=== PATIENT | male | born 1960 | race Caucasian/White ===

== ENCOUNTER 2017-06-28 07:39 | Emergency (ER) | payer BC ==
--- NOTE | 2017-06-28 07:47 | EDM.PDOC ---
ED HPI GENERAL MEDICAL PROBLEM - General Chief Complaint: Gastrointestinal Problem Stated Complaint: BLEEDING Time Seen by Provider: 06/28/17 07:40 - History of Present Illness INITIAL COMMENTS - FREE TEXT/NARRATIVE: HISTORY AND PHYSICAL: History of present illness: Patient's 56-year-old white male presents with a concern of bright red blood per rectum 2-3 days he states this is primarily when he wipes he does have hemorrhoids he denies abdominal pain denies history of known diverticular disease denies any known bleeding diathesis. There's been no chest pain shortness of breath nausea vomiting or other concern patient denies melena Review of systems: As per history of present illness and below otherwise all systems reviewed and negative. Past medical history: As per history of present illness and as reviewed below otherwise noncontributory. Surgical history: As per history of present illness and as reviewed below otherwise noncontributory. Social history: No reported history of drug or alcohol abuse. Family history: As per history of present illness and as reviewed below otherwise noncontributory. Physical exam: HEENT: Atraumatic, normocephalic, pupils reactive, negative for conjunctival pallor or scleral icterus, mucous membranes moist, throat clear, neck supple, nontender, trachea midline. Lungs: Clear to auscultation, breath sounds equal bilaterally, chest nontender. Heart: S1S2, regular, negative for clicks, rubs, or JVD. Abdomen: Soft, nondistended, nontender. Negative for masses or hepatosplenomegaly. Negative for costovertebral tenderness. Pelvis: Stable nontender. Genitourinary: Deferred. Rectal: External hemorrhoid noted without evidence of active bleeding Extremities: Atraumatic, negative for cords or calf pain. Neurovascular unremarkable. Neuro: Awake, alert, oriented. Cranial nerves II through XII unremarkable. Cerebellum unremarkable. Motor and sensory unremarkable throughout. Exam nonfocal. Diagnostics: CBC CMP PT/INR EKG CT abdomen and pelvis Therapeutics: To be determined Impression: #1 history of bright red blood per rectum Definitive disposition and diagnosis as appropriate pending reevaluation and review of above. - Related Data Allergies Allergy/AdvReac Type Severity Reaction Status Date / Time Penicillins Allergy Cannot Verified 06/28/17 07:43 Remember Home Meds: Home Meds Indomethacin [Indocin] 1 tab PO BID PRN 02/29/16 [History] Metoprolol Succinate [Toprol XL] 100 mg PO DAILY 10/03/15 [History] Lisinopril 10 mg PO DAILY 06/28/17 [History] Past Medical History HEENT History: Reports: None Cardiovascular History: Reports: Hypertension Respiratory History: Reports: None Gastrointestinal History: Reports: None Genitourinary History: Reports: None Musculoskeletal History: Reports: Gout Other Musculoskeletal History: hx of fx right ankle Neurological History: Reports: None Psychiatric History: Reports: None Endocrine/Metabolic History: Reports: Obesity/BMI 30+ Hematologic History: Reports: None Immunologic History: Reports: None Oncologic (Cancer) History: Reports: None Dermatologic History: Reports: None - Past Surgical History GI Surgical History: Reports: Other (See Below) Musculoskeletal Surgical History: Reports: Hip Replacement, ORIF Social & Family History - Family History Oncologic: Reports: Skin - Tobacco Use Smoking Status *Q: Never Smoker - Recreational Drug Use Recreational Drug Use: No Drug Use in Last 12 Months: No ED ROS GENERAL - Review of Systems Review Of Systems: ROS reveals no pertinent complaints other than HPI. ED EXAM, GENERAL - Physical Exam Exam: See Below (See dictation) Course - Vital Signs Last Recorded V/S: Last Vital Signs Temp 36.6 C 06/28/17 07:39 Pulse 55 L 06/28/17 08:37 Resp 18 06/28/17 08:37 BP 144/89 H 06/28/17 08:37 Pulse Ox 95 06/28/17 08:37 - Orders/Labs/Meds Orders: Active Orders 24 hr Category Date Time Status EKG 12 Lead [EKG Documentation Completion] [RC] STAT Care 06/28/17 08:06 Active Abdomen Pelvis w Cont [CT] Stat Exams 06/28/17 07:45 Stop Req Abdomen Pelvis wo Cont [CT] Stat Exams 06/28/17 07:47 Ordered Labs: Laboratory Tests 06/28/17 06/28/17 06/28/17 Range/Units 07:45 07:55 07:55 WBC 6.51 (4.0-11.0) K/uL RBC 4.91 (4.50-5.90) M/uL Hgb 14.4 (13.0-17.0) g/dL Hct 41.9 (38.0-50.0) % MCV 85.3 (80.0-98.0) fL MCH 29.3 (27.0-32.0) pg MCHC 34.4 (31.0-37.0) g/dL RDW Std Deviation 45.7 (28.0-62.0) fl RDW Coeff of Kathy 15 (11.0-15.0) % Plt Count 214 (150-400) K/uL MPV 9.00 (7.40-12.00) fL Neut % (Auto) 68.8 (48.0-80.0) % Lymph % (Auto) 21.8 (16.0-40.0) % Gregory % (Auto) 6.8 (0.0-15.0) % Eos % (Auto) 2.3 (0.0-7.0) % Baso % (Auto) 0.3 (0.0-1.5) % Neut # (Auto) 4.5 (1.4-5.7) K/uL Lymph # (Auto) 1.4 (0.6-2.4) K/uL Gregory # (Auto) 0.4 (0.0-0.8) K/uL Eos # (Auto) 0.2 (0.0-0.7) K/uL Baso # (Auto) 0.0 (0.0-0.1) K/uL Nucleated RBC % 0.0 /100WBC Nucleated RBCs # 0 K/uL INR 1.01 (0.86-1.11) Sodium 139 (136-146) mmol/L Potassium 3.7 (3.5-5.1) mmol/L Chloride 106 (98-110) mmol/L Carbon Dioxide 25 (21-31) mmol/L BUN 16 (6.0-23.0) mg/dL Creatinine 0.9 (0.6-1.5) mg/dL Est Cr Clr Drug Dosing 89.47 mL/min Estimated GFR (MDRD) > 60.0 ml/min Glucose 113 H (60-110) mg/dL Calcium 8.7 L (8.8-10.8) mg/dL Total Bilirubin 0.6 (0.1-1.5) mg/dL AST 14 (5-40) IU/L ALT 17 (8-54) IU/L Alkaline Phosphatase 82 (40-150) Total Protein 7.0 (6.0-8.0) g/dL Albumin 3.9 (3.5-5.0) g/dL Globulin 3.1 (2.0-3.5) g/dL Albumin/Globulin Ratio 1.3 (1.3-2.8) Departure - Departure Time of Disposition: 08:41 Disposition: Home, Self-Care 01 Condition: Good Clinical Impression: History of gastrointestinal bleeding - Discharge Information Forms: ED Department Discharge Additional Instructions: The following information is given to patients seen in the emergency department who are being discharged to home. This information is to outline your options for follow-up care. We provide all patients seen in our emergency department with a follow-up referral. The need for follow-up, as well as the timing and circumstances, are variable depending upon the specifics of your emergency department visit. If you don't have a primary care physician on staff, we will provide you with a referral. We always advise you to contact your personal physician following an emergency department visit to inform them of the circumstance of the visit and for follow-up with them and/or the need for any referrals to a consulting specialist. The emergency department will also refer you to a specialist when appropriate. This referral assures that you have the opportunity for followup care with a specialist. All of these measure are taken in an effort to provide you with optimal care, which includes your followup. Under all circumstances we always encourage you to contact your private physician who remains a resource for coordinating your care. When calling for followup care, please make the office aware that this follow-up is from your recent emergency room visit. If for any reason you are refused follow-up, please contact the [facility] emergency department at and asked to speak to the emergency department charge nurse. [facility] - General Surgery Professional Building [address] [place] [address], [address] [place] [address] Follow-up primary medical doctor and make appointment with general surgery above as discussed return as needed as discussed - My Orders Last 24 Hours: My Active Orders 06/28/17 07:45 Abdomen Pelvis w Cont [CT] Stat 06/28/17 07:47 Abdomen Pelvis wo Cont [CT] Stat 06/28/17 08:06 EKG 12 Lead [EKG Documentation Completion] [RC] STAT - Assessment/Plan Last 24 Hours: My Active Orders 06/28/17 07:45 Abdomen Pelvis w Cont [CT] Stat 06/28/17 07:47 Abdomen Pelvis wo Cont [CT] Stat 06/28/17 08:06 EKG 12 Lead [EKG Documentation Completion] [RC] STAT
[2017-06-28 08:29] LABS: CHLORIDE,CL 106 mmol/L (98-110); SODIUM,NA 139 mmol/L (136-146)
[2017-06-28 08:38] VITALS: BP 144/89
--- NOTE | 2017-06-28 10:06 | CT ---
EXAM DATE: 06/28/17 PATIENT'S AGE: 56 Patient: MAYCOL MORAN Facility: [place], [place] Site . Site : 1960 Study: CT Abdomen/Pelvis [id number]/[id number] 8:15:11 AM Ordering Physician: Thuan Campos Final Report: INDICATION: Rectal bleeding. Technique: CT abdomen and pelvis performed without oral IV contrast. Findings: Bilateral total hip arthroplasties. Minimal fibrotic change in the lung bases. Tiny calcifications in the posterior inferior gallbladder likely related to tiny stones with less likely consideration being a early gallbladder wall calcification. Moderate sized lipoma left lower lateral chest wall. Benign diffuse thickening of the left adrenal gland likely related to hyperplasia. Nodular thickening right adrenal gland likely related to an adenoma. No CT abnormality identified to explain rectal bleeding. All changes of anterior pelvic wall hernia repair with mesh material in the periumbilical region. 2 small recurrent fat containing hernias in the lower anterior abdominal wall just above the mesh material each measuring approximately 2-3 cm in diameter each on image 100 arising from small 1 cm defects in the lower anterior abdominal wall fascia and musculature. Remainder negative. Impression: 1. No CT abnormality identified to explain rectal bleeding. 2. Postsurgical changes of the periumbilical anterior pelvic wall hernia repair with mesh material with 2 small fat containing recurrent hernias in the lower anterior abdominal wall just above the level of the mesh. 3. Nodular thickening of the adrenal glands right greater than left consistent with hyperplasia and/or adenomas. 4. Small calcifications in the gallbladder would favor cholelithiasis although early porcelain gallbladder is not excluded. Other findings as above. Please note that all CT scans at this facility use dose modulation, iterative reconstruction, and/or weight-based dosing when appropriate to reduce radiation dose to as low as reasonably achievable. Dictated by Juan Jose Bryan MD @ Jun 28 2017 8:36AM (Electronic Signature) Report Signed by Proxy. [email or web address]
== END 2017-06-28 08:47 | disposition home or self-care (01) ==
LOC: MW.ED 07:39
DX: K64.4 Residual hemorrhoidal skin tags (principal); I10 Essential (primary) hypertension; Z87.19 Personal history of other diseases of the digestive system; Z88.0 Allergy status to penicillin; Z79.899 Other long term (current) drug therapy
CPT/HCPCS: 36415; 74176; 74176-26; 80053; 85025; 85610; 93005; 99283; 99284-25

== ENCOUNTER 2021-08-11 11:42 | Emergency (ER) | payer BC, OTHER ==
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
[2021-08-11 13:11] VITALS: BP 132/72; PULSE 48
== END 2021-08-11 13:16 | disposition home or self-care (01) ==
LOC: MW.ED 11:42
DX: S13.4XXA Sprain of ligaments of cervical spine, initial encounter (principal); S33.5XXA Sprain of ligaments of lumbar spine, initial encounter; S16.1XXA Strain of muscle, fascia and tendon at neck level, initial encounter; S39.012A Strain of muscle, fascia and tendon of lower back, initial encounter; I10 Essential (primary) hypertension; E66.9 Obesity, unspecified; Z79.899 Other long term (current) drug therapy; Z68.41 Body mass index [BMI] 40.0-44.9, adult; Z88.0 Allergy status to penicillin; V43.93XA Unspecified car occupant injured in collision with pick-up truck in traffic accident, initial encounter; Y92.410 Unspecified street and highway as the place of occurrence of the external cause
CPT/HCPCS: 72125; 72125-26; 99284-25

== ENCOUNTER 2021-09-16 10:20 | Emergency (ER) | payer BC, OTHER ==
[2021-09-16 13:30] VITALS: BP 146/78; PULSE 58
== END 2021-09-16 13:29 | disposition home or self-care (01) ==
LOC: MW.ED 10:20
DX: H66.92 Otitis media, unspecified, left ear (principal); R51.9 Headache, unspecified; I10 Essential (primary) hypertension; M10.9 Gout, unspecified; E78.00 Pure hypercholesterolemia, unspecified; E66.9 Obesity, unspecified; Z68.45 Body mass index [BMI] 70 or greater, adult; Z88.0 Allergy status to penicillin; Z79.899 Other long term (current) drug therapy
CPT/HCPCS: 70450; 70450-26; 99283; 99284-25

== ENCOUNTER 2021-12-03 21:20 | Emergency (ER) | payer BC ==
[2021-12-03 23:26] LABS: CARBON DIOXIDE,CO2 25.4 mmol/L (21.0-32.0); POTASSIUM,K 3.8 mmol/L (3.5-5.1)
[2021-12-04 00:25] VITALS: BP 126/70; PULSE 65
== END 2021-12-04 00:15 | disposition home or self-care (01) ==
LOC: MW.ED 21:20
DX: R31.0 Gross hematuria (principal); E78.00 Pure hypercholesterolemia, unspecified; I10 Essential (primary) hypertension; M10.9 Gout, unspecified; E66.9 Obesity, unspecified; Z68.42 Body mass index [BMI] 45.0-49.9, adult; Z88.0 Allergy status to penicillin; Z79.899 Other long term (current) drug therapy
CPT/HCPCS: 36415; 74176; 74176-26; 80053; 81001; 85025; 99284; 99284-25